=== PATIENT | female | born 1990 | race Two or more races ===

== ENCOUNTER → 2025-05-16 | Outpatient (CLI) | payer MEDICAID, SELFPAY ==
--- NOTE | 2025-05-16 | XR_ITS ---
Examination: CT soft tissue neck, with intravenous contrast. 2-D coronal reconstructions. 2-D sagittal reconstructions. Date and time of exam :May 16, 2025 1208 hours INDICATIONS: Left carotid triangle lymph nodes the largest 13 mm, right carotid triangle lymph nodes, the largest [address] soft tissue neck August 17, 2024.. CTDI: vol (mGy):10.4 DLP: (mGycm):273 Technique: 1.25 mm axial sections of the neck of the obtained. Coronal and sagittal reconstructions have been obtained. Intravenous contrast administered 50 cc Isovue-[id number]. Low dose protocols were performed. One or more of the following dose reduction techniques were used; automated exposure control, adjustment of the mA and/or KV according to patient size, use of iterative reconstruction technique. Findings: Symmetrical nasopharynx oropharynx Left carotid triangle lymph node 10 mm Slightly larger right submandibular gland but no sialadenitis Symmetrical parotid glands The larynx appears normal Normal epiglottis No prevertebral soft tissue prominence Thyroid lobes exhibit symmetry Subglottic region unremarkable Lung apices clear IMPRESSION: Left carotid triangle lymph node 10 mm No interval significant carotid lymphadenopathy Suggest 3-6 month follow-up ultrasound soft tissue neck as clinically warranted
== END | disposition home or self-care (01) ==
PROVIDERS: PCP Nurse Practitioner Primary Care; Referring Provider Nurse Practitioner Primary Care; Visit Provider Nurse Practitioner Primary Care
DX: R59.9 Enlarged lymph nodes, unspecified (principal)
CPT/HCPCS: 70491; A4649; Q9967

== ENCOUNTER → 2025-06-09 | Outpatient (CLI) | payer MEDICAID, SELFPAY ==
--- NOTE | 2025-06-09 | XR_ITS ---
Examination: PA lateral chest 2 views TECHNIQUE: Upright PA lateral chest 2 views Exam date and time: June 09, 2025 11:40 AM INDICATIONS: Positive PPD skin test FINDINGS: Normal heart size. Lungs are clear. The osseous structures are intact. IMPRESSION: No active disease. No radiographic findings of tuberculosis
== END | disposition home or self-care (01) ==
LOC: CDIM 11:09
PROVIDERS: PCP Nurse Practitioner Primary Care; Referring Provider Nurse Practitioner Primary Care; Visit Provider Nurse Practitioner Primary Care
DX: R76.12 Nonspecific reaction to cell mediated immunity measurement of gamma interferon antigen response without active tuberculosis (principal)
CPT/HCPCS: 71046

== ENCOUNTER → 2025-09-01 | Outpatient (CLI) | payer MEDICAID, SELFPAY ==
--- NOTE | 2025-09-01 12:00 | XR_ITS ---
Examination: Breast ultrasound, unilateral, left complete Date and time of exam: September 01, 2025, 1203 hours INDICATIONS: Left breast pain beginning 6 months ago Technique: Real-time box scale ultrasonographic imaging performed left breast including all 4 quadrants as well as nipple retroareolar and axillary region. Findings: No cystic or solid mass IMPRESSION: BI-RADS Category 1: Negative study
== END | disposition home or self-care (01) ==
PROVIDERS: PCP Nurse Practitioner Primary Care; Referring Provider Nurse Practitioner Primary Care; Visit Provider Nurse Practitioner Primary Care
DX: N64.4 Mastodynia (principal)
CPT/HCPCS: 76641